=== PATIENT | male | born 1965 | race Caucasian/White ===

== ENCOUNTER 2018-07-17 16:58 | Emergency (ER) | payer BC, OTHER ==
[~2018-07-17] VITALS: Ht 193 cm; Wt 129.2 kg
[2018-07-17 17:17] VITALS: BP 161/101
[2018-07-17] MEDS ORDERED: OXYcodone/APAP 5/325MG TABLET ONE (18:04)
[2018-07-17] MEDS ORDERED: KETOROLAC 30 MG/1 ML ONE (18:05)
[2018-07-17] MEDS ORDERED: KETOROLAC 30 MG/1 ML IM ONE (18:30)
[2018-07-17] MEDS ORDERED: OXYcodone/APAP 5/325MG TABLET PO ONE (18:30)
== END 2018-07-17 19:02 | disposition home or self-care (01) ==
LOC: ED 18:57
DX: S62.325A Displaced fracture of shaft of fourth metacarpal bone, left hand, initial encounter for closed fracture (principal); S62.327A Displaced fracture of shaft of fifth metacarpal bone, left hand, initial encounter for closed fracture; S16.1XXA Strain of muscle, fascia and tendon at neck level, initial encounter; M51.36 Other intervertebral disc degeneration, lumbar region; E11.9 Type 2 diabetes mellitus without complications; V49.49XA Driver injured in collision with other motor vehicles in traffic accident, initial encounter; Y93.89 Activity, other specified; Y92.89 Other specified places as the place of occurrence of the external cause; Y99.8 Other external cause status
CPT/HCPCS: 72050; 72072; 72110; 73110; 73130; 96372; 99283; J1885